=== PATIENT | male | born 2000 | race Caucasian/White ===

== ENCOUNTER 2022-01-11 20:08 | Emergency (ER) | payer OTHER ==
[~2022-01-11] VITALS: Ht 182.9 cm; Wt 108.2 kg
[2022-01-11] MEDS ORDERED: ACETAMINOPHEN 500 MG TABLET PO ONE ×2 (20:45→21:10)
[2022-01-11] MEDS ORDERED: IBUPROFEN 600 MG TABLET. PO ONE ×2 (20:45→21:10)
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
[2022-01-11] MEDS ORDERED: MUPIROCIN 2% TOPICAL OINTMENT 22GM TUBE. TP SCH (21:00)
[2022-01-11 21:10] VITALS: BP 150/76
[2022-01-11] MEDS ORDERED: MUPIROCIN 2% TOPICAL OINTMENT 22GM TUBE. TP ONE (21:10)
== END 2022-01-11 21:15 | disposition home or self-care (01) ==
LOC: ER 20:08
DX: T23.272A Burn of second degree of left wrist, initial encounter (principal); X08.8XXA Exposure to other specified smoke, fire and flames, initial encounter; Y93.89 Activity, other specified; Y92.89 Other specified places as the place of occurrence of the external cause; Y99.8 Other external cause status
CPT/HCPCS: 99284